=== PATIENT | male | born 1985 | race Caucasian/White ===

== ENCOUNTER 2018-12-22 07:58 | Emergency (ER) | payer BC, OTHER ==
[2018-12-22 08:22] VITALS: O2SAT 98
--- NOTE | 2018-12-22 08:29 | ERPHSYRPT ---
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 has pain now in lower back but ibuprophen is relieving pain. states his work wanted him to come in and get checked. Triage Nursing Assessment: ambulated to room per self. skin w/d, color normal, resp easy. tenderness to lower back. denies any other symptoms. 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 has pain now in lower back but ibuprofen is relieving pain. states his work wanted him to come in and get checked. Timing/Duration: yesterday Method of Injury: lifting (patient at [place]) Quality: aching Back Pain Location: T-spine, paraspinous muscles Severity of Pain-Max: mild Severity of Pain-Current: mild Modifying Factors: Improves With: nothing Associated Symptoms: denies symptoms Allergies/Adverse Reactions: No Known Drug Allergies Allergy (Unverified 12/22/18 08:07) Hx Tetanus, Diphtheria Vaccination/Date Given: Yes Hx Influenza Vaccination/Date Given: Yes Hx Pneumococcal Vaccination/Date Given: No - Review of Systems Constitutional: No Fever, No Chills Eyes: No Symptoms Ears, Nose, & Throat: No Symptoms Respiratory: No Cough, No Dyspnea Cardiac: No Chest Pain, No Edema, No Syncope Abdominal/Gastrointestinal: No Abdominal Pain, No Nausea, No Vomiting, No Diarrhea Genitourinary Symptoms: No Dysuria Musculoskeletal: Back Pain, No Neck Pain, No Deformity, No Fall, No Joint Redness, No Joint Pain, No Joint Swelling, No Myalgias Skin: No Rash Neurological: No Dizziness, No Focal Weakness, No Sensory Changes Psychological: No Symptoms Endocrine: No Symptoms All Other Systems: Reviewed and Negative - Past Medical History Pertinent Past Medical History: No - Past Surgical History Past Surgical History: No - Social History Smoking Status: Current every day smoker How long have you smoked: 2 Exposure to second hand smoke: No Drug Use: none Patient Lives Alone: No - Nursing Vital Signs Nursing Vital Signs: Initial Vital Signs Temperature 97.8 F 12/22/18 08:02 Pulse Rate 92 H 12/22/18 08:02 Respiratory Rate 16 03/31/19 08:02 Blood Pressure 135/96 12/22/18 08:02 O2 Sat by Pulse Oximetry 98 12/22/18 08:02 Pain Scale Pain Intensity [] 5 Pain Intensity 5 - Physical Exam General Appearance: no apparent distress, alert Eye Exam: PERRL/EOMI, eyes nml inspection Neck Exam: normal inspection, non-tender, supple, full range of motion, No meningismus, No midline tenderness Respiratory Exam: normal breath sounds, lungs clear, No respiratory distress Cardiovascular Exam: regular rate/rhythm, normal heart sounds Gastrointestinal Exam: soft, No tenderness, No mass Extremity Exam: normal inspection, normal range of motion, No calf tenderness, No pedal edema Neurologic Exam: alert, oriented x 3, 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, 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, normal mood/affect, nml station & gait, sensation nml, No motor deficits Skin Exam: normal color, warm, dry, No rash SpO2: 98 - Course Nursing assessment & vital signs reviewed: Yes - Radiology Exams T-Spine X-ray Interpretation: Reviewed by me (normal) Ordered Tests: Active Orders 24 hr Category Date Time Status THORACIC SPINE (AP,LAT,SWIMM) Stat Exams 12/22/18 08:47 Taken - Progress Progress: unchanged, pain not gone completely Counseled pt/family regarding: diagnosis, need for follow-up, rad results - Departure Departure Disposition: Home Clinical Impression: Lumbalgia Qualifiers: Chronicity: acute Back pain laterality: left Sciatica presence: without sciatica Qualified Code(s): M54.5 - Low back pain Condition: Stable Critical Care Time: No Referrals: DOCTOR,NO FAMILY [Primary Care Provider] - Instructions: Low Back Pain (DC) Additional Instructions: BACK INJURY 1. May apply moist heat frequently for relief of pain. Take care not to burn the skin. Do not use heat for more than 30 minutes at a time. 2. Try to sleep on a firm bed, flat on your back. 3. If no improvement is noticed in 2-3 days, follow up with your family physician. 4. If you notice any numbness, tingling, weakness, or problems with your bowel or bladder, you should call your family physician or return to the emergency department. Forms: Work/School Release Form Prescriptions: Naproxen 500 mg [Naprosyn 500 MG] 500 mg PO BIDAC #30 tablet
[2018-12-22 09:11] VITALS: BP 129/92; PULSE 62
--- NOTE | 2018-12-22 20:02 | XRAY ---
Indication: Back pain after lifting patient at work. Comparison: None Frontal/lateral thoracic spine demonstrates 12 typical rib bearing thoracic segments with minimal levoscoliosis centered at T4 and a few tiny pulmonary calcified granulomas. No other bony, articular, or soft tissue abnormalities.
== END 2018-12-22 09:12 | disposition home or self-care (01) ==
LOC: ED 07:58
DX: M54.5 Low back pain (principal); X50.0XXA Overexertion from strenuous movement or load, initial encounter; X50.1XXA Overexertion from prolonged static or awkward postures, initial encounter; Y93.89 Activity, other specified; Y92.128 Other place in nursing home as the place of occurrence of the external cause
CPT/HCPCS: 72072; 99283

== ENCOUNTER 2021-04-02 18:46 | Emergency (ER) | payer OTHER ==
[2021-04-02 19:40] VITALS: BP 150/112; PULSE 90; O2SAT 97
[2021-04-02] MEDS ORDERED: BACTRIM DS TABLET PO ONE ×2 (19:45→20:17)
--- NOTE | 2021-04-02 19:56 | ERPHSYRPT ---
- History of Present Illness Time Seen by Provider: 04/02/21 19:51 Source: patient Exam Limitations: no limitations Physician History: This is a 35-year-old white male who presents with some redness and possible infection of his left lower extremity at the level of his ankle lateral aspect. Patient did not see an insect bite him. However, there is evidence of cellulitis and his work told him to come to the emergency department for evaluation. He has not had any fevers or chills. Quality: burning Severity: mild Location: extremities (Left lower extremity at the level of the ankle lateral aspect) Possible Causes: insect bite (Possible) Associated Symptoms: denies symptoms Allergies/Adverse Reactions: No Known Drug Allergies Allergy (Unverified 04/02/21 19:37) Hx Tetanus, Diphtheria Vaccination/Date Given: Yes Hx Influenza Vaccination/Date Given: Yes Hx Pneumococcal Vaccination/Date Given: No Travel Risk - International Travel Have you traveled outside of the country in past 3 weeks: No - Coronavirus Screening Are you exhibiting any of the following symptoms?: No Close contact with a COVID-19 positive Pt in past 14-21 Days: No - Review of Systems Constitutional: No Symptoms Eyes: No Symptoms Ears, Nose, & Throat: No Symptoms Respiratory: No Symptoms Cardiac: No Symptoms Abdominal/Gastrointestinal: No Symptoms Genitourinary Symptoms: No Symptoms Musculoskeletal: No Symptoms Skin: Cellulitis (Mild left ankle) Neurological: No Symptoms Psychological: No Symptoms Endocrine: No Symptoms Hematologic/Lymphatic: No Symptoms Immunological/Allergic: No Symptoms All Other Systems: Reviewed and Negative - Past Medical History Pertinent Past Medical History: Yes Neurological History: No Pertinent History ENT History: No Pertinent History Cardiac History: Hypertension Respiratory History: No Pertinent History Endocrine Medical History: No Pertinent History Musculoskeletal History: No Pertinent History GI Medical History: No Pertinent History History: No Pertinent History Psycho-Social History: No Pertinent History Male Reproductive Disorders: No Pertinent History - Past Surgical History Past Surgical History: No Neuro Surgical History: No Pertinent History Cardiac: No Pertinent History Respiratory: No Pertinent History Gastrointestinal: No Pertinent History Genitourinary: No Pertinent History Musculoskeletal: No Pertinent History Male Surgical History: No Pertinent History - Social History Smoking Status: Current every day smoker How long have you smoked: 2 Exposure to second hand smoke: No Drug Use: none Patient Lives Alone: No - Nursing Vital Signs Nursing Vital Signs: Initial Vital Signs Temperature 98.1 F 04/02/21 19:38 Pulse Rate 90 04/02/21 19:38 Respiratory Rate 20 04/02/21 19:38 Blood Pressure 150/112 04/02/21 19:38 O2 Sat by Pulse Oximetry 97 04/02/21 19:38 Pain Scale Pain Intensity 0 - Physical Exam General Appearance: no apparent distress, alert Eye Exam: PERRL/EOMI, eyes nml inspection Ears, Nose, Throat Exam: normal ENT inspection, moist mucous membranes Neck Exam: normal inspection, non-tender, supple, full range of motion Respiratory Exam: airway intact, No chest tenderness, No respiratory distress Gastrointestinal/Abdomen Exam: No tenderness Rectal Exam: not done Back Exam: normal inspection, normal range of motion, No CVA tenderness, No vertebral tenderness Extremity Exam: tenderness, other (Mild localized tenderness and cellulitis lateral aspect left ankle. 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, normal mood/affect, nml cerebellar function, nml station & gait, sensation nml Skin Exam: other (See above) Lymphatic Exam: adenopathy SpO2 Interpretation: normal SpO2: 97 O2 Delivery: Room Air - Course Nursing assessment & vital signs reviewed: Yes Ordered Tests: Medication Summary Discontinued Medications Generic Name Dose Route Start Last Admin Trade Name Dakotaq PRN Reason Stop Dose Admin Trimethoprim/Sulfamethoxazole 1 tab 04/02/21 19:45 Bactrim Ds Tablet PO 04/02/21 19:46 STAT ONE - Progress Progress: unchanged Counseled pt/family regarding: diagnosis, need for follow-up - Departure Departure Disposition: Home Clinical Impression: Cellulitis of left ankle Condition: Stable Critical Care Time: No Referrals: DOMONIQUE HANLEY MD [Primary Care Provider] - Additional Instructions: Keep area clean daily with soap and water. Take your antibiotics as prescribed. Use Tylenol and ibuprofen for fever and pain control. Return to the emergency department if symptoms worsen Prescriptions: Smz/Tmp Ds Tablet [Bactrim Ds Tablet] 1 udtab PO BID #14 tablet
== END 2021-04-02 20:27 | disposition home or self-care (01) ==
LOC: ED 18:46
DX: L03.116 Cellulitis of left lower limb (principal)
CPT/HCPCS: 99283; A9270-GY

== ENCOUNTER 2021-04-17 14:11 | Emergency (ER) | payer OTHER ==
[2021-04-17] MEDS ORDERED: Adacel Vial IM ONE ×2 (14:33→14:48)
[2021-04-17 14:43] VITALS: BP 152/70; PULSE 71; O2SAT 98
--- NOTE | 2021-04-17 14:44 | ERPHSYRPT ---
- History of Present Illness Time Seen by Provider: 04/17/21 14:20 Source: patient Exam Limitations: no limitations Patient Subjective Stated Complaint: Pt was at a house to purchase a puppy when he was greeted at the door by 6-8 davian vickie terrior dogs (not puppies) and was bitten on the left and right lower legs Triage Nursing Assessment: Pt was brought to the ER by his boyfriend, hypertensive, rates pain 0/10, not actively bleeding, denies any other injuries Physician History: 35 years old presented in the ER with chief complaint of dog bite on both lower legs when he went to buy a puppy and multiple Davian Vickie's attacked. There was minimal bleeding initially which is improved. Complaining of mild dull aching pain, more with palpation and walking. Unsure about tetanus status. Timing/Duration: today, resolved prior to arrival Quality: burning, painful Severity: mild Location: extremities Possible Causes: other (Dog bite) Associated Symptoms: swelling/mass/lumps Allergies/Adverse Reactions: No Known Drug Allergies Allergy (Verified 04/17/21 14:37) Hx Tetanus, Diphtheria Vaccination/Date Given: Yes Hx Influenza Vaccination/Date Given: Yes Hx Pneumococcal Vaccination/Date Given: No Travel Risk - International Travel Have you traveled outside of the country in past 3 weeks: No - Coronavirus Screening Are you exhibiting any of the following symptoms?: No Close contact with a COVID-19 positive Pt in past 14-21 Days: No - Vaccine Status Have you recieved a Covid-19 vaccination: Yes Neonatologist: [facility] - Vaccination Dates Date of 2cond Vaccination (if applicable): 11/23/20 - Review of Systems Constitutional: No Symptoms Eyes: No Symptoms Respiratory: No Symptoms Cardiac: No Symptoms Abdominal/Gastrointestinal: No Symptoms Genitourinary Symptoms: No Symptoms Musculoskeletal: Injury Skin: Skin Lesions Neurological: No Symptoms Psychological: No Symptoms Endocrine: No Symptoms Hematologic/Lymphatic: No Symptoms Immunological/Allergic: No Symptoms - Past Medical History Pertinent Past Medical History: Yes Neurological History: No Pertinent History ENT History: No Pertinent History Cardiac History: Hypertension Respiratory History: No Pertinent History Endocrine Medical History: No Pertinent History Musculoskeletal History: No Pertinent History GI Medical History: No Pertinent History History: No Pertinent History Psycho-Social History: No Pertinent History Male Reproductive Disorders: No Pertinent History - Past Surgical History Past Surgical History: No Neuro Surgical History: No Pertinent History Cardiac: No Pertinent History Respiratory: No Pertinent History Gastrointestinal: No Pertinent History Genitourinary: No Pertinent History Musculoskeletal: No Pertinent History Male Surgical History: No Pertinent History - Social History Smoking Status: Current every day smoker How long have you smoked: 2 Exposure to second hand smoke: Yes Drug Use: none Patient Lives Alone: No - Nursing Vital Signs Nursing Vital Signs: Initial Vital Signs Temperature 97.5 F 04/17/21 14:32 Pulse Rate 71 04/17/21 14:32 Blood Pressure 152/70 04/17/21 14:32 O2 Sat by Pulse Oximetry 98 04/17/21 14:32 Pain Scale Pain Intensity 0 - Physical Exam General Appearance: no apparent distress, alert Eye Exam: PERRL/EOMI, eyes nml inspection Neck Exam: normal inspection, full range of motion Respiratory Exam: normal breath sounds, lungs clear Cardiovascular Exam: regular rate/rhythm, normal heart sounds Extremity Exam: other (Multiple bite braun on the right anterior and left lower leg with minimal tenderness and erythema around. Intact distal neurovascular.) Neurologic Exam: alert, oriented x 3, cooperative Skin Exam: normal color SpO2 Interpretation: normal SpO2: 98 O2 Delivery: Room Air Ordered Tests: Medication Summary Discontinued Medications Generic Name Dose Route Start Last Admin Trade Name Freq PRN Reason Stop Dose Admin Diphtheria/Tetanus/Acell Pertussis 0.5 ml 04/17/21 14:33 Adacel Vial IM 04/17/21 14:34 .ONCE ONE - Progress Progress: unchanged Progress Note: 04/17/21 14:43 Tetanus is updated. Will fax paperwork to health department. 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 Started on Augmentin. Discussed signs symptoms of infection needing return to ER he seems understanding Counseled pt/family regarding: diagnosis, need for follow-up - Departure Departure Disposition: Home Clinical Impression: Dog bite Qualifiers: Encounter type: initial encounter Qualified Code(s): W54.0XXA - Bitten by dog, initial encounter Condition: Stable Critical Care Time: No Referrals: DOMONIQUE HANLEY MD [Primary Care Provider] - Follow Up with PCP/3 days Instructions: Animal Bites (DC) Additional Instructions: Take Tylenol/ibuprofen as needed for pain for symptomatic relief. Keep it clean, wash daily with Dial soap. Continue with antibiotics. Follow-up with primary care physician for reevaluation. Return to ER for increasing pain swelling redness discharge/fever chills etc. Prescriptions: Amoxicillin/Potassium Clav [Augmentin 875-125 Tablet] 875 mg PO BID 7 Days #14 tablet
== END 2021-04-17 15:04 | disposition home or self-care (01) ==
LOC: ED 14:11
DX: Z04.3 Encounter for examination and observation following other accident (principal)
CPT/HCPCS: 90471; 90715; 99283

== ENCOUNTER 2021-10-04 02:25 | Emergency (ER) | payer OTHER ==
[2021-10-04] MEDS ORDERED: solu-MEDROL 125 MG, Sterile H2O 10 ml 2 ML IV ONE ×2 (02:49)
[2021-10-04] MEDS ORDERED: DUONEB 0.5-3 MG/3 ml Neb IH ONE ×2 (02:52→03:00)
[2021-10-04] MEDS ORDERED: solu-MEDROL ONE (02:54)
--- NOTE | 2021-10-04 03:00 | ERPHSYRPT ---
- History of Present Illness Time Seen by Provider: 10/04/21 02:40 Source: patient Exam Limitations: no limitations Patient Subjective Stated Complaint: "I'm having a hard time breathing." Triage Nursing Assessment: Patient reported acute onset shortness of breath at home today. reported that the breathing trouble has slowly subsided throghout . He reported having a headache earlier in the day. Denied any headache, dizziness, chest pain, exertional dyspnea, N/V/D, abdominal pain, hematochezia. Pupils 3mm bilateral. Oral mucosa pink/moist. Neck supple without JVD or lymphadenopathy. Symmetrical chest expansion. heart tones S1/S2 RRR without extra sounds. Lungs vesicular with adequate airflow. Peripheral pulses +3 bilateral. No history of asthma, COPD, PE, or oxygen use Physician History: Patient is a 36-year-old male presents to our ED with complaints of intermittent shortness of breath that has been going on intermittently throughout the day. Patient states that he will develop shortness of breath and it would gradually improve. Patient awoke today with some shortness of breath. Patient is a sm oker. No associated chest pain. No nausea vomiting or diaphoresis. Symptoms are mild to moderate in intensity. No specific worsening or improving factors. Patient denies a history of the same. No dizziness. No lightheadedness. Patient states his breathing feels normal at this time. He voices no other complaints concerns at this time. Timing/Duration: today Activities at Onset: none Severity of Dyspnea-Max: moderate Severity of Dyspnea-Current: mild Possible Cause: no prior episodes Modifying Factors: Improves With: nothing Associated Symptoms: denies symptoms, No anxiety, No cough, No edema, No fever, No lightheadedness, No wheezing, No weakness, No ankle swelling, No chills, No lightheadedness, No muscle spasms feet, No muscle spasms hands, No productive cough Allergies/Adverse Reactions: No Known Drug Allergies Allergy (Verified 10/04/21 02:32) Hx Tetanus, Diphtheria Vaccination/Date Given: Yes Hx Influenza Vaccination/Date Given: No Hx Pneumococcal Vaccination/Date Given: No Travel Risk - International Travel Have you traveled outside of the country in past 3 weeks: No - Coronavirus Screening Are you exhibiting any of the following symptoms?: Yes Symptoms: Shortness of Breath Close contact with a COVID-19 positive Pt in past 14-21 Days: No - Vaccine Status Have you recieved a Covid-19 vaccination: Yes 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: [employer] - Vaccination Dates Date of 2cond Vaccination (if applicable): unknown - Review of Systems Constitutional: No Symptoms, No Fever, No Chills Eyes: No Symptoms Ears, Nose, & Throat: No Symptoms Respiratory: No Symptoms, No Cough, No Dyspnea Cardiac: No Symptoms, No Chest Pain, No Edema, No Syncope Abdominal/Gastrointestinal: No Symptoms, No Abdominal Pain, No Nausea, No Vomiting, No Diarrhea Genitourinary Symptoms: No Symptoms, No Dysuria Musculoskeletal: No Symptoms, No Back Pain, No Neck Pain Skin: No Symptoms, No Rash Neurological: No Symptoms, No Dizziness, No Focal Weakness, No Sensory Changes Psychological: No Symptoms Endocrine: No Symptoms Hematologic/Lymphatic: No Symptoms Immunological/Allergic: No Symptoms All Other Systems: Reviewed and Negative - Past Medical History Pertinent Past Medical History: Yes Neurological History: No Pertinent History ENT History: No Pertinent History Cardiac History: Hypertension Respiratory History: No Pertinent History Endocrine Medical History: No Pertinent History Musculoskeletal History: No Pertinent History GI Medical History: No Pertinent History History: No Pertinent History Psycho-Social History: No Pertinent History Male Reproductive Disorders: No Pertinent History - Past Surgical History Past Surgical History: No Neuro Surgical History: No Pertinent History Cardiac: No Pertinent History Respiratory: No Pertinent History Gastrointestinal: No Pertinent History Genitourinary: No Pertinent History Musculoskeletal: No Pertinent History Male Surgical History: No Pertinent History - Social History Smoking Status: Current every day smoker How long have you smoked: 2 Exposure to second hand smoke: Yes Drug Use: none Patient Lives Alone: No - Nursing Vital Signs Nursing Vital Signs: Initial Vital Signs Temperature 97.6 F 10/04/21 02:25 Pulse Rate 90 10/04/21 02:25 Respiratory Rate 20 10/04/21 02:25 Blood Pressure 117/50 10/04/21 02:25 O2 Sat by Pulse Oximetry 99 10/04/21 02:25 Pain Scale Pain Intensity 0 - Physical Exam General Appearance: no apparent distress, alert Eye Exam: PERRL/EOMI, eyes nml inspection Ears, Nose, Throat Exam: hearing grossly normal, normal ENT inspection, normal pharynx Neck Exam: normal inspection, supple, full range of motion Respiratory Exam: lungs clear, airway intact, diminished breath sounds, No respiratory distress, No accessory muscle use, No crackles/rales, No wheezing Cardiovascular/Chest Exam: normal heart sounds, regular rate/rhythm, normal peripheral pulses, No edema Abdominal/Gastrointestinal Exam: soft, No tenderness, No distention, No mass Extremity Exam: non-tender, normal range of motion, normal inspection, no calf tenderness, no pedal edema Neurologic Exam: alert, oriented x 3, 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 Clear lung reyes. Magi l cardiac silhouette. Intact bony thorax.) Ordered Tests: Active Orders 24 hr Category Date Time Status Costumed Character Entertainer STAT Care 10/04/21 02:48 Active EKG-ER Only STAT Care 10/04/21 02:46 Active IV Insertion STAT Care 10/04/21 02:46 Active Pulse Oximetry (ED) STAT Care 10/04/21 02:46 Active CHEST 1 VIEW (PORTABLE) Stat Exams 10/04/21 02:48 Taken CBC W DIFF Stat Lab 10/04/21 02:55 Completed CMP Stat Lab 10/04/21 02:55 Completed D-DIMER QUANTITATIVE Stat Lab 10/04/21 02:55 Completed NT PRO BNP Stat Lab 10/04/21 02:55 Completed TROPONIN Q3H Lab 10/04/21 02:55 Completed TROPONIN Q3H Lab 10/04/21 06:00 Ordered TROPONIN Q3H Lab 10/04/21 09:00 Ordered TROPONIN Q3H Lab 10/04/21 12:00 Ordered TROPONIN Q3H Lab 10/04/21 15:00 Ordered Respiratory Therapy Assessment DAILY RT 10/04/21 02:56 Completed Medication Summary Discontinued Medications Generic Name Dose Route Start Last Admin Trade Name Freq PRN Reason Stop Dose Admin Albuterol/Ipratropium 3 ml 10/04/21 02:52 10/04/21 03:03 Ipratropium/Albuterol Sulfate 3 Ml Ampul.Neb IH 10/04/21 02:53 3 ml STAT ONE Administration Albuterol/Ipratropium Confirm 10/04/21 03:00 Ipratropium/Albuterol Sulfate 3 Ml Ampul.Neb Administered 10/04/21 03:01 Dose 3 ml IH .STK-MED ONE Methylprednisolone Sodium 0 mg 10/04/21 02:49 10/04/21 02:55 Succinate 125 mg/ Sterile IV 10/04/21 02:50 125 mg Water 2 ml STAT ONE Administration Methylprednisolone Sodium Succinate Confirm 10/04/21 02:54 Methylprednis Sod Succ 125 Mg/2 Ml Vial Administered 10/04/21 02:55 Dose 125 mg .ROUTE .STK-MED ONE Lab/Rad Data: Laboratory Result Diagrams 10/04/21 02:55 10/04/21 02:55 Laboratory Results 10/04/21 10/04/21 10/04/21 Range/Units 02:55 02:55 02:55 WBC (4.0-10.5) K/mm3 RBC (4.1-5.6) M/mm3 Hgb (12.5-18.0) gm/dl Hct (42-50) % MCV (78-100) fl MCH (26-32) pg MCHC (32-36) g/dl RDW (11.5-14.0) % Plt Count (150-450) K/mm3 MPV (7.5-11.0) fl Gran % (36.0-66.0) % Eos # (Auto) (0-0.5) Absolute Lymphs (auto) (1.0-4.6) Absolute Monos (auto) (0.0-1.3) Lymphocytes % (24.0-44.0) % Monocytes % (0.0-12.0) % Eosinophils % (0.00-5.0) % Basophils % (0.0-0.4) % Absolute Granulocytes (1.4-6.9) Basophils # (0-0.4) D-Dimer 243 (215-500) ng/mL Sodium 139 (137-145) mmol/L Potassium 3.8 (3.5-5.1) mmol/L Chloride 103 (98-107) mmol/L Carbon Dioxide 24 (22-30) mmol/L Anion Gap 15.3 H (5-15) MEQ/L BUN 15 (9-20) mg/dL Creatinine 0.98 (0.66-1.25) mg/dL Estimated GFR > 60.0 ML/MIN Glucose 99 (74-106) mg/dL Calcium 9.6 (8.4-10.2) mg/dL Total Bilirubin 0.60 (0.2-1.3) mg/dL AST 21 (17-59) U/L ALT 22 (0-50) U/L Alkaline Phosphatase 116 (38-126) U/L Troponin I < 0.012 (0.000-0.034) ng/mL NT-Pro-B Natriuret Pep 13.5 (0-450) pg/mL Serum Total Protein 8.5 H (6.3-8.2) g/dL Albumin 4.8 (3.5-5.0) g/dL 10/04/21 Range/Units 02:55 WBC 9.5 (4.0-10.5) K/mm3 RBC 5.66 H (4.1-5.6) M/mm3 Hgb 16.7 (12.5-18.0) gm/dl Hct 49.7 (42-50) % MCV 87.8 (78-100) fl MCH 29.5 (26-32) pg MCHC 33.6 (32-36) g/dl RDW 12.8 (11.5-14.0) % Plt Count 274 (150-450) K/mm3 MPV 8.8 (7.5-11.0) fl Gran % 51.7 (36.0-66.0) % Eos # (Auto) 0.36 (0-0.5) Absolute Lymphs (auto) 3.32 (1.0-4.6) Absolute Monos (auto) 0.91 (0.0-1.3) Lymphocytes % 34.8 (24.0-44.0) % Monocytes % 9.5 (0.0-12.0) % Eosinophils % 3.8 (0.00-5.0) % Basophils % 0.2 (0.0-0.4) % Absolute Granulocytes 4.92 (1.4-6.9) Basophils # 0.02 (0-0.4) D-Dimer (215-500) ng/mL Sodium (137-145) mmol/L Potassium (3.5-5.1) mmol/L Chloride (98-107) mmol/L Carbon Dioxide (22-30) mmol/L Anion Gap (5-15) MEQ/L BUN (9-20) mg/dL Creatinine (0.66-1.25) mg/dL Estimated GFR ML/MIN Glucose (74-106) mg/dL Calcium (8.4-10.2) mg/dL Total Bilirubin (0.2-1.3) mg/dL AST (17-59) U/L ALT (0-50) U/L Alkaline Phosphatase (38-126) U/L Troponin I (0.000-0.034) ng/mL NT-Pro-B Natriuret Pep (0-450) pg/mL Serum Total Protein (6.3-8.2) g/dL Albumin (3.5-5.0) g/dL - Progress Progress: improved Air Movement: good Progress Note: Patient reassessed. He is well. Lungs are clear. Patient breathing easy. Patient ambulated in our ED and maintain a normal oxygen saturation. He expressed no shortness of breath. Chest x-ray clear. D-dimer negative. Troponin negative. Patient states he is ready for discharge. Prescription for prednisone was forwarded to patient's pharmacy. Patient was given a pr escription for albuterol Ventolin. He agrees to follow-up with primary care doctor within 48 hours for evaluation. He voices no other complaints or concerns at this time. Patient states he is ready for discharge. Portions of this note were created with voice recognition technology. There may be grammatical, spelling, punctuation or sound alike errors 10/04/21 04:15 Blood Culture(s) Obtained: No Antibiotics given: No Counseled pt/family regarding: lab results, diagnosis, need for follow-up, rad results - Departure Departure Disposition: Home Clinical Impression: Bronchitis Condition: Stable Critical Care Time: No Referrals: DOMONIQUE HANLEY MD [Primary Care Provider] - Follow up/PCP as directed Prescriptions: Prednisone 10 mg [Deltasone 10 mg] 40 mg PO DAILY 3 Days #12 tablet Albuterol 8 gm Mdi Hfa [Ventolin Hfa MDI] 8 gm IH Q4H #1 gm
[2021-10-04 03:04] LABS: Absolute Neutrophil Ct (ANC) 4.92 (1.4-6.9); Basophil (Absolute #) 0.02 (0-0.4); Eosinophil % 3.8 % (0.00-5.0); Eosinophil (Absolute #) 0.36 (0-0.5); Hematocrit 49.7 % (42-50); Hemoglobin 16.7 gm/dl (12.5-18.0); Lymphocyte (Absolute #) 3.32 (1.0-4.6); Lymphocytes % 34.8 % (24.0-44.0); Mean Cell Volume 87.8 fl (78-100); Mean Corpuscular Hemoglobin 29.5 pg (26-32); Mean Corpuscular Hgb Concent. 33.6 g/dl (32-36); Mean Platelet Volume 8.8 fl (7.5-11.0); Monocyte (Absolute #) 0.91 (0.0-1.3); Monocytes % 9.5 % (0.0-12.0); Neutrophil % 51.7 % (36.0-66.0); Platelet Count 274 K/mm3 (150-450); Red Blood Count 5.66 M/mm3 (4.1-5.6); Red Cell Distribution Width 12.8 % (11.5-14.0); White Blood Count 9.5 K/mm3 (4.0-10.5)
[2021-10-04 03:27] LABS: ALBUMIN 4.8 g/dL (3.5-5.0); ALKALINE PHOSPHATASE 116 U/L (38-126); ANION GAP 15.3 MEQ/L (5-15); BLOOD UREA NITROGEN 15 mg/dL (9-20); CHLORIDE 103 mmol/L (98-107); Calcium 9.6 mg/dL (8.4-10.2); Carbon Dioxide 24 mmol/L (22-30); Creatinine 1 0.98 mg/dL (0.66-1.25); EST GLOMERULAR FILTRATION RATE > 60.0 ML/MIN; Glucose 99 mg/dL (74-106); NT PRO BNP 13.5 pg/mL (0-450); Potassium 3.8 mmol/L (3.5-5.1); SGOT/AST 21 U/L (17-59); SGPT/ALT 22 U/L (0-50); SODIUM 139 mmol/L (137-145); Total Protein 8.5 g/dL (6.3-8.2)
[2021-10-04 04:10] VITALS: BP 138/82; PULSE 80
[2021-10-04 04:17] VITALS: O2SAT 99
--- NOTE | 2021-10-04 09:39 | XRAY ---
Indication: Short of breath. Comparison: January 14, 2010. Portable chest less inflated and remains clear again with incidental tiny calcified granulomas. Heart not enlarged. Bony thorax intact. No new/acute findings.
== END 2021-10-04 04:28 | disposition home or self-care (01) ==
LOC: ED 02:25
DX: J40 Bronchitis, not specified as acute or chronic (principal); Z72.0 Tobacco use; I10 Essential (primary) hypertension; Z79.52 Long term (current) use of systemic steroids
CPT/HCPCS: 36000; 36415; 71045; 80053; 83880; 84484; 85025; 85379; 93005; 93041; 94640; 94760; 96374; 99284; J2930; A9270-GY

== ENCOUNTER 2022-08-17 03:23 | Emergency (ER) | payer OTHER ==
[2022-08-17] MEDS ORDERED: Zofran 4 MG/2 ML VIAL IV ONE (03:46)
[2022-08-17] MEDS ORDERED: TORAdol 30 mg Injection IV ONE (03:46)
[2022-08-17] MEDS ORDERED: Hydromorphone 1 mg/ml Injection IV ONE (03:46)
--- NOTE | 2022-08-17 04:09 | ERPHSYRPT ---
- History of Present Illness Time Seen by Provider: 08/17/22 03:38 Source: patient Exam Limitations: no limitations Patient Subjective Stated Complaint: pt states "I have this back pain. I am a [employer] and don't know if I pulled something or not." Triage Nursing Assessment: pt ambulated into the er; pt is axo x4; c/o flank pain; pt states 5/10 pain to marilin flank region; tenderness present to marilin flank region; hyperactive bowel sounds in all quads; no abd tenderness present; pt denies urination difficulty; pt denies N/V/D; skin PDW; hypertensive; t achycardic Physician History: Patient is here with bilateral low back pain. No fever or chills. No nausea, vomiting. 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 He feels he may have pulled something while working. No falls or trauma. No other falls or trauma that he remembers. No problems peeing or pooping. He is here with his partner tonight. Timing/Duration: yesterday Severity: mild Modifying Factors: Improves With: acetaminophen, ibuprofen Associated Symptoms: denies symptoms Allergies/Adverse Reactions: No Known Drug Allergies Allergy (Verified 08/17/22 03:32) Hx Tetanus, Diphtheria Vaccination/Date Given: Yes Hx Influenza Vaccination/Date Given: No Hx Pneumococcal Vaccination/Date Given: No Travel Risk - International Travel Have you traveled outside of the country in past 3 weeks: No - Coronavirus Screening Are you exhibiting any of the following symptoms?: No Close contact with a COVID-19 positive Pt in past 14-21 Days: No - Vaccine Status Have you recieved a Covid-19 vaccination: Yes 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[employer] - Vaccination Dates Date of 2cond Vaccination (if applicable): unknown - Review of Systems Constitutional: No Fever, No Chills Eyes: No Symptoms Ears, Nose, & Throat: No Symptoms Respiratory: No Cough, No Dyspnea Cardiac: No Chest Pain, No Edema, No Syncope Abdominal/Gastrointestinal: No Abdominal Pain, No Nausea, No Vomiting, No Diarrhea Genitourinary Symptoms: No Dysuria Musculoskeletal: Back Pain, No Neck Pain Skin: No Rash Neurological: No Dizziness, No Focal Weakness, No Sensory Changes Psychological: No Symptoms Endocrine: No Symptoms All Other Systems: Reviewed and Negative - Past Medical History Pertinent Past Medical History: Yes Neurological History: No Pertinent History ENT History: No Pertinent History Cardiac History: Hypertension Respiratory History: No Pertinent History Endocrine Medical History: No Pertinent History Musculoskeletal History: No Pertinent History GI Medical History: No Pertinent History History: No Pertinent History Psycho-Social History: No Pertinent History Male Reproductive Disorders: No Pertinent History - Past Surgical History Past Surgical History: No Neuro Surgical History: No Pertinent History Cardiac: No Pertinent History Respiratory: No Pertinent History Gastrointestinal: No Pertinent History Genitourinary: No Pertinent History Musculoskeletal: No Pertinent History Male Surgical History: No Pertinent History - Social History Smoking Status: Current every day smoker How long have you smoked: 2 Exposure to second hand smoke: Yes Drug Use: none Patient Lives Alone: No - Nursing Vital Signs Nursing Vital Signs: Initial Vital Signs Temperature 97.1 F 08/17/22 03:33 Pulse Rate 100 H 08/17/22 03:33 Respiratory Rate 18 08/17/22 03:33 Blood Pressure 191/99 08/17/22 03:33 O2 Sat by Pulse Oximetry 98 08/17/22 03:33 Pain Scale Pain Intensity 5 - Physical Exam General Appearance: no apparent distress, alert Eye Exam: PERRL/EOMI, eyes nml inspection Ears, Nose, Throat Exam: normal ENT inspection, TMs normal, pharynx normal, moist mucous membranes Neck Exam: normal inspection, non-tender, supple, full range of motion Respiratory Exam: normal breath sounds, lungs clear, No respiratory distress Cardiovascular Exam: regular rate/rhythm, normal heart sounds, normal peripheral pulses Gastrointestinal/Abdomen Exam: soft, normal bowel sounds, No tenderness, No mass Back Exam: normal inspection, normal range of motion, muscle spasm, point tenderness, other (No obvious reproducible midline tenderness. Some paraspinal tenderness, muscle spasms.), No CVA tenderness, No vertebral tenderness Extremity Exam: normal inspection, normal range of motion, pelvis stable Neurologic Exam: alert, oriented x 3, cooperative, normal mood/affect, nml cerebellar function, nml station & gait, sensation nml, No motor deficits Skin Exam: normal color, warm, dry, No rash Lymphatic Exam: No adenopathy SpO2: 98 - Course Nursing assessment & vital signs reviewed: Yes Ordered Tests: Active Orders 24 hr Category Date Time Status IV Insertion STAT Care 08/17/22 03:46 Active CBC W DIFF Stat Lab 08/17/22 04:12 Completed CMP Stat Lab 08/17/22 04:12 Received LIPASE Stat Lab 08/17/22 04:12 Received UA W/RFX CULTURE Stat Lab 08/17/22 03:55 Completed Medication Summary Discontinued Medications Generic Name Dose Route Start Last Admin Trade Name Paul PRN Reason Stop Dose Admin Hydromorphone HCl 0.5 mg 08/17/22 03:46 08/17/22 04:12 Hydromorphone 1 Mg/1ml Inj 1 Mg/Ml Syringe IV 08/17/22 03:47 Not Given STAT ONE Hydromorphone HCl 0.5 mg 08/17/22 04:11 08/17/22 04:16 Hydromorphone 1 Mg/1ml Inj 1 Mg/Ml Syringe IM 08/17/22 04:12 0.5 mg STAT ONE Administration Hydromorphone HCl Confirm 08/17/22 04:13 Hydromorphone 1 Mg/1ml Inj 1 Mg/Ml Syringe Administered 08/17/22 04:14 Dose 1 mg .ROUTE .STK-MED ONE Ketorolac Tromethamine 30 mg 08/17/22 03:46 08/17/22 04:12 Ketorolac Tromethamine 30 Mg/Ml Inj IV 08/17/22 03:47 Not Given STAT ONE Ketorolac Tromethamine 30 mg 08/17/22 04:11 08/17/22 04:19 Ketorolac Tromethamine 30 Mg/Ml Inj IM 08/17/22 04:12 30 mg STAT ONE Administration Ketorolac Tromethamine Confirm 08/17/22 04:12 Ketorolac Tromethamine 30 Mg/Ml Inj Administered 08/17/22 04:13 Dose 30 mg .ROUTE .STK-MED ONE Ondansetron HCl 4 mg 08/17/22 03:46 08/17/22 04:12 Ondansetron Hcl 4 Mg/2 Ml Vial IV 08/17/22 03:47 Not Given STAT ONE Ondansetron HCl 4 mg 08/17/22 04:11 08/17/22 04:18 Zofran 4 Mg/Udtablet Orally Disintegrating PO 08/17/22 04:12 4 mg STAT ONE Administration Ondansetron HCl Confirm 08/17/22 04:12 Zofran 4 Mg/Udtablet Orally Disintegrating Administered 08/17/22 04:13 Dose 4 mg .ROUTE .STK-MED ONE Lab/Rad Data: Laboratory Result Diagrams 08/17/22 04:12 Laboratory Results 08/17/22 08/17/22 Range/Units 04:12 03:55 WBC 6.5 (4.0-10.5) x10^3/uL RBC 5.59 (4.1-5.6) x10^6/uL Hgb 16.6 (12.5-18.0) g/dL Hct 49.5 (42-50) % MCV 88.6 (78-100) fL MCH 29.7 (26-32) pg MCHC 33.5 (32-36) g/dL RDW 12.6 (11.5-14.0) % Plt Count 146 L (150-450) x10^3/uL MPV 10.4 (7.5-11.0) fL Gran % 50.6 (36.0-66.0) % Immature Gran % (Auto) 0.2 (0.00-0.4) % Nucleat RBC Rel Count 0.0 (0.00-0.1) % Eos # (Auto) 0.28 (0-0.5) x10^3/uL Immature Gran # (Auto) 0.01 (0.00-0.03) x10^3u/L Absolute Lymphs (auto) 2.29 (1.0-4.6) x10^3/uL Absolute Monos (auto) 0.59 (0.0-1.3) x10^3/uL Absolute Nucleated RBC 0.00 (0.00-0.01) x10^3u/L Lymphocytes % 35.2 (24.0-44.0) % Monocytes % 9.1 (0.0-12.0) % Eosinophils % 4.3 (0.00-5.0) % Basophils % 0.6 (0.0-0.4) % Absolute Granulocytes 3.30 (1.4-6.9) x10^3/uL Basophils # 0.04 (0-0.4) x10^3/uL Urinalys Dipstick Clnc MAIN LAB Urine Color YELLOW (YELLOW) Urine Appearance CLEAR (CLEAR) Urine pH 5.5 (5-6) Ur Specific [place] >=1.030 A (1.005-1.025) POC Urine Protein Conf NEGATIVE (Negative) Urine Ketones NEGATIVE (NEGATIVE) Urine Nitrite NEGATIVE (NEGATIVE) Urine Bilirubin NEGATIVE (NEGATIVE) Urine Urobilinogen 0.2 (0-1) mg/dL Urine Leukocytes NEGATIVE (NEGATIVE) Urine WBC (Auto) 3-5 A (0-5) /HPF Urine RBC (Auto) NONE (0-2) /HPF U Epithel Cells (Auto) NONE (FEW) /HPF Urine Bacteria (Auto) NONE (NEGATIVE) /HPF Urine RBC NEGATIVE (0-5) Leonidas/ul Ur Culture Indicated? NO Urine Glucose NEGATIVE (NEGATIVE) mg/dL - Progress Progress: improved Progress Note: 08/17/22 04:08 We will obtain basic labs, pain medication, UA. 08/17/22 04:35 Labs and UA are unremarkable. Patient feels improved with pain control. Plan for Flexeril going home. - Departure Departure Disposition: Home Clinical Impression: Low back pain Condition: Stable Critical Care Time: No Referrals: DOMONIQUE HANLEY MD [Primary Care Provider] - Follow up/PCP as directed Instructions: Low Back Pain (DC) Prescriptions: Cyclobenzaprine HCl 10 mg [Flexeril 10 MG] 10 mg PO TID #12 tablet
[2022-08-17] MEDS ORDERED: TORAdol 30 mg Injection IM ONE (04:11)
[2022-08-17] MEDS ORDERED: Hydromorphone 1 mg/ml Injection IM ONE (04:11)
[2022-08-17] MEDS ORDERED: ZOFRAN ODT 4 MG PO ONE (04:11)
[2022-08-17] MEDS ORDERED: ZOFRAN ODT 4 MG ONE (04:12)
[2022-08-17] MEDS ORDERED: TORAdol 30 mg Injection ONE (04:12)
[2022-08-17] MEDS ORDERED: Hydromorphone 1 mg/ml Injection ONE (04:13)
[2022-08-17 04:22] LABS: Basophil (Absolute #) 0.04 x10^3/uL (0-0.4); Eosinophil % 4.3 % (0.00-5.0); Eosinophil (Absolute #) 0.28 x10^3/uL (0-0.5); Hematocrit 49.5 % (42-50); Hemoglobin 16.6 g/dL (12.5-18.0); Lymphocyte (Absolute #) 2.29 x10^3/uL (1.0-4.6); Lymphocytes % 35.2 % (24.0-44.0); Mean Cell Volume 88.6 fL (78-100); Mean Corpuscular Hemoglobin 29.7 pg (26-32); Mean Corpuscular Hgb Concent. 33.5 g/dL (32-36); Mean Platelet Volume 10.4 fL (7.5-11.0); Monocyte (Absolute #) 0.59 x10^3/uL (0.0-1.3); Monocytes % 9.1 % (0.0-12.0); Neutrophil % 50.6 % (36.0-66.0); Platelet Count 146 x10^3/uL (150-450); Red Blood Count 5.59 x10^6/uL (4.1-5.6); Red Cell Distribution Width 12.6 % (11.5-14.0); White Blood Count 6.5 x10^3/uL (4.0-10.5)
[2022-08-17 04:26] LABS: Appearance CLEAR (CLEAR); Bilirubin NEGATIVE (NEGATIVE); Dipstick done @ ? MAIN LAB; Glucose NEGATIVE (NEGATIVE); Ketones NEGATIVE (NEGATIVE); Nitrite NEGATIVE (NEGATIVE); Ph 5.5 (5-6); Protein,Urine Dip NEGATIVE (Negative); RBC NEGATIVE Ery/ul (0-5); Specific Gravity >=1.030 (1.005-1.025); Urobilinogen 0.2 mg/dL (0-1)
[2022-08-17 04:28] LABS: Urine Cultured Indicated? NO
[2022-08-17 04:32] VITALS: BP 139/81; PULSE 74
[2022-08-17 04:35] VITALS: O2SAT 98
[2022-08-17 04:46] LABS: Slide Review 1 YES
== END 2022-08-17 04:46 | disposition home or self-care (01) ==
LOC: ED 03:23
DX: M54.50 Low back pain, unspecified (principal); I10 Essential (primary) hypertension; Z72.0 Tobacco use
CPT/HCPCS: 36415; 81015; 85025; 96372; 99283; J1170; J1885; Q0162